=== PATIENT | female | born 1950 | race American Indian/Alaskan Native ===

== ENCOUNTER 2018-05-05 22:05 | Emergency (ER) | payer MEDICARE ==
[2018-05-05 22:34] VITALS: BMI 25.0
[2018-05-05] MEDS ORDERED: Labetalol 5mg/ml (4ml) IV STA (23:08)
--- NOTE | 2018-05-05 23:14 | ED PDOC ---
Arrival/HPI - History of Present Illness Narrative History of Present Illness (Text): 05/05/18 23:08 68y/o F with Past medical history of Diabetes, Hypertension presents with complaints of R great toe pain and infection. Pt reports she had noticed a callus on her R great toe about 3 weeks ago which she cut herself and noticed that area had progressively enlarged with drainage and malodor. She reports there is pain when pressure is placed on the area, however denies pain at rest. She denies taking antibiotics or placing topical ointment to the region. She reports she hasn't seen a physician in over a year, and has never visited a studio coordinator. She is currently not taking any medications for hypertension and diabetes. She denies fevers, chills, headache, dizziness, chest pain, palpitations, shortness of breath, nausea, vomiting, diarrhea, dysuria. Past medical history: Diabetes, Hypertension Allergies: "soda:boils around body PSH: 20, 28 years ago SH: Denies smoking/alcohol. Works in [employer] service in [facility] FH: Mother: Hypertension, CHF. Father: Renal failure Meds: Denies PMD: None Insurance: Medicare/AARP 05/05/18 23:15 Time/Duration: Prior to Arrival Symptom Onset: Gradual Symptom Course: Unchanged Quality: Aching Context: Standing <Carlo Alcocer - Last Filed: 05/06/18 02:14> <Logan Cabrera - Last Filed: 05/06/18 02:19> - General Chief Complaint: Lower Extremity Problem/Injury Past Medical History - Provider Review Nursing Documentation Reviewed: Yes - Infectious Disease Hx of Infectious Diseases: None - Cardiac Hx Cardiac Disorders: Yes Hx Hypertension: Yes - Pulmonary Hx Respiratory Disorders: No - Endocrine/Metabolic Hx Diabetes Mellitus Type 2: Yes - Psychiatric Hx Substance Use: No - Surgical History Hx Section: Yes <Carlo Alcocer - Last Filed: 05/06/18 02:14> Family/Social History - Physician Review Nursing Documentation Reviewed: Yes Family/Social History: Hypertension, Other (CHF) Smoking Status: Never Smoked Hx Alcohol Use: No Hx Substance Use: No <Carlo Alcocer - Last Filed: 05/06/18 02:14> Allergies/Home Meds <Carlo Alcocer - Last Filed: 05/06/18 02:14> <Logan Cabrera - Last Filed: 05/06/18 02:19> Allergies/Adverse Reactions: Allergies No Known Allergies Allergy (Verified 05/05/18 22:34) Review of Systems - Review of Systems Constitutional: Normal Eyes: Normal ENT: Normal Respiratory: Normal Cardiovascular: Normal Gastrointestinal: Normal Genitourinary Female: Normal Musculoskeletal: Other (R great toe pain with pressure) Skin: Normal Neurological: Normal Endocrine: Normal Hemo/Lymphatic: Normal Psychiatric: Normal <Carlo Alcocer - Last Filed: 05/06/18 02:14> Physical Exam Vital Signs Reviewed: Yes Vital Signs Temp Pulse Resp BP Pulse Ox 05/05/18 22:33 98.7 F 103 H 18 209/105 H 99 Temperature: Afebrile Blood Pressure: Hypertensive Pulse: Tachycardic Respiratory Rate: Normal Appearance: Positive for: Well-Appearing, Non-Toxic, Comfortable Pain Distress: None Mental Status: Positive for: Alert and Oriented X 3 - Systems Exam Head: Present: Atraumatic, Normocephalic Pupils: Present: PERRL Extroacular Muscles: Present: EOMI Conjunctiva: Present: Normal Mouth: Present: Moist Mucous Membranes Neck: Present: Normal Range of Motion Respiratory/Chest: Present: Clear to Auscultation, Good Air Exchange. No: Respiratory Distress, Accessory Muscle Use Cardiovascular: Present: Normal S1, S2, Tachycardic. No: Murmurs Abdomen: No: Tenderness, Distention, Peritoneal Signs Back: Present: Normal Inspection Upper Extremity: Present: Normal Inspection. No: Cyanosis, Edema Lower Extremity: Present: Edema, Other (RLE: R big toe, non blanchable, malodorous, non-purulent, probed with swab: deep, crusting) Neurological: Present: GCS=15, CN II-XII Intact, Speech Normal Skin: Present: Warm, Dry, Normal Color, Other (Multiple boils noted across back. Boil noted on L lower lip). No: Rashes Psychiatric: Present: Alert, Oriented x 3, Normal Insight, Normal Concentration <Carlo Alcocer Last Filed: 05/06/18 02:14> Vital Signs Temp Pulse Resp BP Pulse Ox 05/06/18 00:21 166/74 H 05/05/18 22:33 98.7 F 103 H 18 209/105 H 99 <Logan Cabrera - Last Filed: 05/06/18 02:19> Medical Decision Making ED Course and Treatment: 05/05/18 23:21 Impression: 68 year old F with Past medical history of Diabetes, Hypertension presents to emergency department with complaints of pain, infection from RLE R big toe that she has noticed for the past 1.5 weeks. Differential diagnoses included but not limited to: R foot cellulitis R great toe osteomyelitis Diabetic ulcer Plan: Labs R foot xray Wound culture Reassess & Dispo Progress Notes: 05/06/18 02:14 Pt re-assessed. Pt requesting to sign out against medical advice. Risks, benefits and alternatives were explained to patient in detail. Pt still requesting to sign out. - RAD Interpretation Radiology Orders: 05/05/18 23:06 FOOT RIGHT GREAT TOE ROUTINE [RAD] Stat <Carlo Alcocer - Last Filed: 05/06/18 02:14> - Lab Interpretations Lab Results: 05/05/18 23:27 05/05/18 23:27 Lab Results 05/05/18 23:27: Sodium 137, Potassium 4.4, Chloride 102, Carbon Dioxide 27, Anion Gap 12, BUN 17, Creatinine 1.1, Est GFR ( Amer) > 60, Est GFR (Non- Af Amer) 50, Random Glucose 359 H*, Calcium 9.5, Total Bilirubin 0.7, AST 19, ALT 15, Alkaline Phosphatase 137 H, Total Protein 8.0, Albumin 4.1, Globulin 3.9, Albumin/Globulin Ratio 1.1 05/05/18 23:27: WBC 7.8, RBC 4.09, Hgb 11.9 L, Hct 36.0, MCV 88.0, MCH 29.1, MCHC 33.1, RDW 12.5, Plt Count 270, MPV 10.5, Gran % 59.9, Lymph % (Auto) 33.3, Petroleum % (Auto) 5.0, Eos % (Auto) 1.5, Baso % (Auto) 0.3, Gran # 4.65, Lymph # (Auto) 2.6, Petroleum # (Auto) 0.4, Eos # (Auto) 0.1, Baso # (Auto) 0.02, ESR 80 H - RAD Interpretation Radiology Orders: 05/05/18 23:06 FOOT RIGHT GREAT TOE ROUTINE [RAD] Stat - Medication Orders Current Medication Orders: Vancomycin HCl (Vancomycin 1gm) 1 gm in 250 mls @ 167 mls/hr IVPB STAT STA; Protocol Stop: 05/06/18 02:27 Last Admin: 05/06/18 01:39 Dose: 167 mls/hr eMAR Start Stop Document 05/06/18 01:39 IT (Rec: 05/06/18 01:39 IT [facility]-) Intravenous Solution Start Date 05/06/18 Start Time 01:39 Discontinued Medications Sodium Chloride (Sodium Chloride 0.9%) 1,000 mls @ 999 mls/hr IV .Q1H1M STA Stop: 05/06/18 01:59 Last Admin: 05/06/18 01:39 Dose: 999 mls/hr eMAR Start Stop Document 05/06/18 01:39 IT (Rec: 05/06/18 01:39 [facility] Intravenous Solution Start Date 05/06/18 Start Time 01:39 Insulin Human Regular (Humulin R) 6 units SC STAT STA Stop: 05/06/18 00:59 Last Admin: 05/06/18 01:38 Dose: 6 u MAR Blood Glucose Document 05/06/18 01:38 IT (Rec: 05/06/18 01:39 IT [facility]-) Blood Glucose Finger Stick Blood Glucose (70-120) 295 Subcutaneous Administrations Document 05/06/18 01:38 IT (Rec: 05/06/18 01:39 IT [facility]-) Injection Site MAR Injection Site Right Arm Charges for Administration # of Subcutaneous Administrations 1 Labetalol HCl (Trandate) 20 mg IV STAT STA Stop: 05/05/18 23:09 <Logan Cabrera - Last Filed: 05/06/18 02:19> - PA / GROUP EXERCISE CLASS INSTRUCTOR / Resident Statement / has reviewed & agrees with the documentation as recorded. / has examined the patient and agrees with the treatment plan. <Carlo Alcocer - Last Filed: 05/06/18 02:14> Disposition/Present on Arrival - Present on Arrival Any Indicators Present on Arrival: No History of DVT/PE: No History of Uncontrolled Diabetes: No Urinary Catheter: No History of Decub. Ulcer: No History Surgical Site Infection Following: None - Disposition Have Diagnosis and Disposition been Completed?: Yes Disposition Time: 02:08 <Carlo Alcocer - Last Filed: 05/06/18 02:14> <Logan Cabrera - Last Filed: 05/06/18 02:19> - Disposition Diagnosis: Osteomyelitis, Hypertension, Diabetes Disposition: AGAINST MEDICAL ADVICE Condition: GUARDED Discharge Instructions (ExitCare): Osteomyelitis, High Blood Pressure in Adults, Diabetes Type 2 (DC) Print Language: FRENCH Additional Instructions: Please visit a studio coordinator as soon as possible in regards to osteomyelitis of your right great toe Please follow-up with a primary care physician to discuss osteomyelitis of your right great toe as well as your high blood pressure and diabetes. Please discuss your recent visit to the emergency room with your primary care physician Prescriptions: Clindamycin [Cleocin] 300 mg PO TID 10 Days #30 cap Referrals: Gwendolyn Moyer DPM [Staff Provider] - Follow up with primary Forms: [employer] ([place])
[2018-05-05 23:31] LABS: BASO # 0.02 K/mm3 (0.0-2.0); BASO % 0.3 % (0.0-3.0); EOS # 0.1 (0.0-0.7); EOS % 1.5 % (1.5-5.0); GRAN # 4.65 (1.4-6.5); GRAN % 59.9 % (50.0-68.0); HEMOGLOBIN 11.9 g/dL (12.0-16.0); LYMPH # 2.6 (1.2-3.4); LYMPH % 33.3 % (22.0-35.0); MEAN CORPUSCULAR HEMOGLOBIN 29.1 pg (25.0-35.0); MEAN CORPUSCULAR HGB CONC 33.1 g/dl (31.0-37.0); MEAN PLATELET VOLUME 10.5 fl (7.0-11.0); MONO # 0.4 (0.1-0.6); RBC 4.09 10^6/uL (3.5-6.1); RED CELL DISTRIBUTION WIDTH 12.5 % (11.5-14.5); WHITE BLOOD COUNT 7.8 10^3/uL (4.5-11.0)
[2018-05-06 00:30] LABS: ALB/GLOB RATIO 1.1 (1.1-1.8); ALBUMIN 4.1 g/dL (3.0-4.8); ALT/SGPT 15 U/L (7-56); AST/SGOT 19 U/L (14-36); BLOOD UREA NITROGEN 17 mg/dL (7-21); CALCIUM 9.5 mg/dL (8.4-10.5); GFR NON-AFRICAN AMERICAN 50
[2018-05-06] MEDS ORDERED: Vancomycin 1gm in NS 250ml 1 GM/250 ML BAG IVPB STA (00:58)
[2018-05-06] MEDS ORDERED: Insulin Regular 1 UNITS/0.01 ML ML SC STA (00:58)
[2018-05-06] MEDS ORDERED: Sodium Chloride 0.9% 1,000 ML IV STA (00:59)
[2018-05-06 03:12] VITALS: BP 149/76; PULSE 82; RESP 17; TEMP 98.8; O2SAT 99
--- NOTE | 2018-05-06 10:19 | RAD ---
Date of service: 05/05/2018 PROCEDURE: Right Foot Radiographs. HISTORY: ulcer under great toe r/o osteom COMPARISON: None. FINDINGS: BONES: No evidence of osteomyelitis. The lateral view is somewhat limited by overlap of toes the oblique and AP views are unremarkable JOINTS: Normal. SOFT TISSUES: There is soft tissue swelling on the plantar aspect of the foot as well as a focal ulcer and air in the soft tissues. OTHER FINDINGS: None. IMPRESSION: No evidence of osteomyelitis
== END 2018-05-06 03:15 | disposition left against medical advice (07) ==
LOC: ED 22:05
DX: E11.69 Type 2 diabetes mellitus with other specified complication (principal); M86.9 Osteomyelitis, unspecified; I10 Essential (primary) hypertension
CPT/HCPCS: 73660; 80053; 85025; 85651; 87070; 87206; 96372; 99284; J7030

== ENCOUNTER 2018-05-24 07:59 | Outpatient (CLI) | payer MEDICARE | END 2018-05-24 08:00 | disposition home or self-care (01) | LOC: RAD 07:59 | DX: L97.519 Non-pressure chronic ulcer of other part of right foot with unspecified severity (principal) ==